=== PATIENT | female | born 1940 | race Caucasian/White ===

== ENCOUNTER 2019-04-17 12:00 | Outpatient (CLI) | payer OTHER | END 2019-04-17 12:14 | disposition home or self-care (01) | LOC: EKG 12:00 | DX: I10 Essential (primary) hypertension (principal); Z85.038 Personal history of other malignant neoplasm of large intestine; R19.4 Change in bowel habit ==

== ENCOUNTER → 2019-04-23 | Day surgery (SDC) | payer OTHER ==
[~2019-04-23] MED LIST: FENOFIBRATE160 MG PO; GLIMEPIRIDE4 M1 PO; JANUMET 50-1,01 EACH PO; ULTRACET PO; ZESTRIL20 MG PO
== END | disposition home or self-care (01) ==
LOC: ADM 04-21 09:45 → CIR.AMB 06:28 → ADM 09:45 → CIR.AMB 09:45
DX: T82.318A Breakdown (mechanical) of other vascular grafts, initial encounter (principal); C18.8 Malignant neoplasm of overlapping sites of colon
CPT/HCPCS: 36585; C1751

== ENCOUNTER 2019-11-24 09:53 | Day surgery (SDC) | payer OTHER | END 2019-11-24 14:30 | disposition home or self-care (01) | LOC: AMB-ENDOS 09:53 | PROVIDERS: ATTEND Surgery | DX: K62.89 Other specified diseases of anus and rectum (principal); K64.8 Other hemorrhoids; Z20.828 Contact with and (suspected) exposure to other viral communicable diseases ==